=== PATIENT | male | born 1970 | race Caucasian/White ===

== ENCOUNTER 2023-08-23 09:14 | Outpatient (CLI) | payer OTHER | END 2023-08-23 09:15 | disposition home or self-care (01) | LOC: SCSRAD 09:14 | PROVIDERS: ATTEND Physician Assistant | DX: M25.432 Effusion, left wrist (principal) ==

== ENCOUNTER 2024-09-20 14:47 | Outpatient (CLI) | payer BC | END 2024-09-20 14:48 | disposition home or self-care (01) | LOC: SCSRAD 14:47 | PROVIDERS: ATTEND Emergency Medicine | DX: M25.511 Pain in right shoulder (principal) ==

== ENCOUNTER 2025-01-29 16:11 | Outpatient (CLI) | payer BC, OTHER | END 2025-01-29 16:12 | disposition home or self-care (01) | LOC: SCSRAD 16:11 | PROVIDERS: ATTEND Nurse Practitioner Family | DX: M25.562 Pain in left knee (principal) ==